=== PATIENT | male | born 1960 | race African-American/Black ===

== ENCOUNTER → 2019-10-09 | Outpatient (CLI) | payer OTHER ==
--- NOTE | 2019-10-09 14:47 | XR ---
EXAMINATION TYPE: XR knee complete RT DATE OF EXAM: 10/09/2019 CLINICAL HISTORY: pain TECHNIQUE: Three views of the right knee are obtained. COMPARISON: None. FINDINGS: There is no acute fracture/dislocation. The tri-compartment joint spaces appear within no rmal limits. The overlying soft tissue appears unremarkable. IMPRESSION: There is no acute fracture or dislocation.ICD 10 NO FRACTURE, INITIAL EVALUATION
== END | disposition home or self-care (01) ==
LOC: RAD 14:30
PROVIDERS: ATTEND Emergency Medicine
DX: S70.11XA Contusion of right thigh, initial encounter (principal)

== ENCOUNTER → 2020-05-15 | Outpatient (CLI) | payer OTHER ==
--- NOTE | 2020-05-17 21:36 | MR ---
EXAMINATION TYPE: MR lumbar spine wo con DATE OF EXAM: 05/15/2020 COMPARISON: None HISTORY: Low back pain into juanita legs, moreso rt side CONTRAST: 0 mL intravenous Gadavist. TECHNIQUE: Multiplanar, multisequence images of the lumbar spine were acquired. FINDINGS: Scoliosis is present. There is a grade 1 retrolisthesis of L2 on L3. Disc desiccation is p resent L1-L2, L2-3 and L4-5. L5-S1: Disc bulge is present with mild anterior thecal sac contact. Exiting nerve root contact is pre sent. No displacement or stenosis is present. Facet hypertrophy is present with ligamentum flavum lax ity. There is moderate right foraminal narrowing. L4-L5: Mild disc bulge has anterior thecal sac contact. Facet hypertrophy and ligamentum flavum laxit y has mild posterior lateral thecal sac compression. The lateral recesses are narrowed. Severe right and moderate left foraminal stenosis is present. Correlate with right L5 radicular symptoms. L3-L4: Broad-based disc bulge is present with anterior thecal sac compression. No AP spinal canal connie nosis present. Mild facet hypertrophy is present greater on the right. There is severe right foramina l stenosis. Moderate left foraminal narrowing is present. L2-L3: Loss of disc height is to this level. Residual disc bulge has anterior thecal sac contact. Fac et hypertrophy and ligamentum flavum laxity, greater on the left, is present. This is contributing to spinal canal stenosis. Severe bilateral foraminal stenosis is present, greater on the left. L1-L2: Minimal disc bulge is present with left paracentral thecal sac compression. No AP spinal canal stenosis present. Facet degenerative changes are present. Disc extension into the thecal sac has sev ere left foraminal stenosis. Correlate with left L4 to radicular symptoms. T12-L1: No significant disc bulge or disc herniation. No spinal canal stenosis. No foraminal stenos is. IMPRESSION: 1. Degenerative disc changes with loss of disc height noted at roughly at L2-L3 and milder at L1-2. 2. Minimal retrolisthesis of L2 on L3 may be present. 3. Facet hypertrophy and ligamentum flavum laxity contributing to posterior lateral thecal sac compre ssion. This is greatest to spinal canal stenosis at L2-3. 4. Multilevel foraminal narrowing. This is severe on the left at L1-2, severe bilaterally at L2-3, gr eater on the left, severe on the right at L3-4 and L4-5. Milder foraminal narrowing is also present d iscussed above.
== END | disposition home or self-care (01) ==
LOC: RADMRIMAIN 15:41
PROVIDERS: ATTEND Family Medicine
DX: M48.061 Spinal stenosis, lumbar region without neurogenic claudication (principal); M43.16 Spondylolisthesis, lumbar region; M47.896 Other spondylosis, lumbar region
CPT/HCPCS: 72148

== ENCOUNTER → 2020-09-07 | Outpatient (CLI) | payer OTHER ==
--- NOTE | 2020-09-08 00:57 | MR ---
EXAMINATION TYPE: MR cervical spine wo con DATE OF EXAM: 09/07/2020 COMPARISON: 03/04/2013 HISTORY: Neck pain, BUE weakness Multiplanar multiecho imaging of the cervical spine was performed without contrast. There is mild straightening of the vertebra. There is disc space narrowing throughout the cervical sp ine. There is developmentally small spinal canal. There is posterior disc herniation at C4-5. There i s resultant severe cervical spinal stenosis. The canal appears narrowed to 4 mm at C4-5. There is mod erate spinal stenosis also at C3-4 and the canal measures 5 mm. There is focal edema in the cervical cord at C4-5. The brainstem is intact. There is no compression fracture. The posterior elements are i ntact. There is 5 mm spinal stenosis at C5-6. IMPRESSION: Multilevel cervical spinal stenosis. This is more severe at C4-5 with 4 mm stenosis and cervical spin al cord edema. There is slight progression of the spinal stenosis compared to old exam.
--- NOTE | 2020-09-08 11:43 | CT ---
EXAMINATION TYPE: CT cervical spine wo con DATE OF EXAM: 09/07/2020 COMPARISON: MRI cervical spine 09/07/2020 HISTORY: Neck pain and left hand numbness. CT DLP: 514.[address] of the cervical spine was performed with bone and soft tissue window settings submitted . Coronal and sagittal reconstruction is obtained There is reversal of the normal cervical lordosis. Moderate to severe multilevel degenerative disc sp walt narrowing is identified extending from C3 through C4 through C6-7. There is ventral and dorsal sp ondylosis. There is central stenosis identified at T3-4, C4-5, C5-6 and C6-7 greatest at C4-5 and C5- 6. There is bilateral neural foraminal encroachment identified at each of these levels. No evidence f or fracture or malalignment. IMPRESSION: Multilevel degenerative disc disease with the multilevel central stenosis and neural fora beth encroachment.
== END | disposition home or self-care (01) ==
LOC: RADCTMAIN 15:57
PROVIDERS: ATTEND Orthopaedic Surgery
DX: M48.02 Spinal stenosis, cervical region (principal); M50.323 Other cervical disc degeneration at C6-C7 level; G95.19 Other vascular myelopathies
CPT/HCPCS: 72125; 72141

== ENCOUNTER 2020-10-20 11:54 | Day surgery (SDC) | payer OTHER ==
[2020-10-14 17:21] VITALS: BMI 25.8
[2020-10-20 12:50] VITALS: RESP 16; TEMP 97.6
[2020-10-20] MEDS ORDERED: LACTATED RINGERS 1,000 ML IV ONE (12:59)
[2020-10-20] MEDS ORDERED: IOPAMIDOL M200 10 ML VIAL ONE (13:11)
[2020-10-20] MEDS ORDERED: MIDAZOLAM 2 MG/2 ML VIAL ONE (13:11)
[2020-10-20] MEDS ORDERED: methylPREDNISolone ACETATE 40 MG/ML 1 ML VIAL ONE (13:11)
[2020-10-20] MEDS ORDERED: fentaNYL (PF) 50 MCG/ML 2 ML AMP ONE (13:11)
--- NOTE | 2020-10-20 13:32 | P.PCN ---
Date of Procedure: 10/20/20 Procedure(s) Performed: PREOPERATIVE DIAGNOSIS: 1-Lumbar radiculopathy . 2-lumbar degenerative disc disease. 3-lumbar spondylosis with lumbar facet arthropathy POSTOPERATIVE DIAGNOSIS: Same as preoperative diagnoses. PROCEDURE 1. Transforaminal epidural steroid injection under fluoroscopic guidance at left L1-2 , left L2-3 level. (Fluoroscopy images stored on file in the radiology Department ) 2. Lumbar epidurogram . ANESTHESIA: Local with 1% lidocaine 3 ml , moderate sedation with intravenous Versed 2 mg and fentanyle 100 micrograms. EBL: Minimal PROCEDURE INDICATION: The patient with low back pain and radiculopathy symptoms unresponsive to conservative treatment. PROCEDURE DESCRIPTION / TECHNIQUE: The patient was seen and identified in the preoperative area. Risks, benefits, complications, and alternatives were discussed with the patient. The patient agreed to proceed with the procedure and signed the consent. IV was started, and vital signs were stable. Patient was taken to the OR and time out was completed. The patient was placed in the prone position on procedure table and a pillow was placed under the abdomen to reduce lumbar lordosis. The lumbosacral area was prepped and draped in the usual sterile fashion. Critical pause was taken. Vital signs were closely monitored during the procedure. Conscious sedation was used during the procedure to decrease patient s anxiety. Using oblique fluoroscopy, the chin of the `Soledad[place]las dog at left L1-2 level was identified, and the skin and deeper tissues just below was localized with 1% lidocaine. Subsequently, a 22-gauge 3.5-inch spinal needle was advanced under a tunneled view fluoroscopic guidance just underneath the chin of the `Radhay dog at the left L1-2 Under lateral fluoroscopy, the needle was then advanced to the posterior border of the interforaminal space. After negative aspiration of CSF and blood and with no paresthesias, 1 mL Isovue 200 contrast dye was injected excellent epidurogram and outlining of the nerve root Subsequently, 3 mL of block solution containing 40 mg Depo-Medrol and 2 mL of 0.9% normal saline PF was injected. Needle was removed and the same procedure was repeated at the left L2-3 level (s). At the end of the procedure, skin was cleansed, and bandages were applied. COMPLICATIONS:none DISPOSITION / PLANS: The patient was placed in a supine position and transferred to the recovery area in a stable condition for observation. There was no evidence of lower extremity motor or sensory deficit after the procedure. Patient was discharged from the recovery room after meeting discharge criteria. Home discharge instructions were given to the patient by the staff. The patient was reexamined prior to discharge.
[2020-10-20 13:35] VITALS: BP 132/83
[2020-10-20] MEDS ORDERED: LACTATED RINGERS 1,000 ML IV SCH (13:39)
[2020-10-20 13:49] VITALS: PULSE 62
--- NOTE | 2020-10-20 13:49 | FL ---
EXAMINATION TYPE: FL guided pain mgmt statistic DATE OF EXAM: 10/20/2020 CLINICAL HISTORY: Low back pain. TECHNIQUE: Fluoroscopy. COMPARISON: None. FINDINGS: Fluoroscopic guidance was provided during pain relief procedure performed by Dr. Saldana . A total of 9 seconds of fluoroscopic time was utilized during the procedure and two spot images ar e acquired. Images acquired shows needle localization several levels in the upper lumbar spine off t he midline. IMPRESSION: As Above.
[2020-10-20] MEDS ORDERED: IV FLUID CONTINUATION 1,000 ML IV ONE (13:50)
== END 2020-10-20 14:03 | disposition home or self-care (01) ==
LOC: ORPAIN 11:54
PROVIDERS: ATTEND Specialist
DX: M47.26 Other spondylosis with radiculopathy, lumbar region (principal); M51.16 Intervertebral disc disorders with radiculopathy, lumbar region
CPT/HCPCS: 64483; 64484; J2250; J1030; J3010; Q9966; 99152

== ENCOUNTER 2021-07-26 14:29 | Emergency (ER) | payer OTHER ==
[2021-07-26 15:24] VITALS: BP 125/79; PULSE 76; RESP 16; TEMP 98
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
== END 2021-07-26 16:50 | disposition home or self-care (01) ==
LOC: EC 14:29
DX: S00.03XA Contusion of scalp, initial encounter (principal); V43.92XA Unspecified car occupant injured in collision with other type car in traffic accident, initial encounter; Y92.410 Unspecified street and highway as the place of occurrence of the external cause
CPT/HCPCS: 70450; 99284